=== PATIENT | female | born 1950 | race Caucasian/White ===

== ENCOUNTER → 2019-09-19 | Outpatient (CLI) | payer MEDICARE ==
[~2019-09-19] MED LIST: HORMONE REPLACEMENT PO; LORTAB 5/500 501 TAB PO; OCUFLOX OPHTH DR5 ML OD
== END ==
LOC: MC.RAD 12:31
DX: N63.11 Unspecified lump in the right breast, upper outer quadrant (principal); Z85.3 Personal history of malignant neoplasm of breast; Z92.3 Personal history of irradiation; Z98.890 Other specified postprocedural states

== ENCOUNTER → 2019-12-21 | Outpatient (CLI) | payer MEDICARE | LOC: MC.RAD 09:47 | DX: C50.211 Malignant neoplasm of upper-inner quadrant of right female breast (principal); Z98.890 Other specified postprocedural states | CPT/HCPCS: G0279 ==

== ENCOUNTER → 2020-12-24 | Outpatient (CLI) | payer MEDICARE | LOC: MC.RAD 12:57 | DX: Z12.31 Encounter for screening mammogram for malignant neoplasm of breast (principal); Z80.3 Family history of malignant neoplasm of breast; Z98.890 Other specified postprocedural states; Z98.82 Breast implant status ==

== ENCOUNTER → 2021-03-03 | Outpatient (CLI) | payer MEDICARE | LOC: MC.RAD 12:50 | DX: C50.211 Malignant neoplasm of upper-inner quadrant of right female breast (principal) ==

== ENCOUNTER → 2022-01-12 | Outpatient (CLI) | payer MEDICARE | LOC: MC.RAD 14:19 | DX: Z12.31 Encounter for screening mammogram for malignant neoplasm of breast (principal) ==

== ENCOUNTER → 2022-03-17 | Outpatient (CLI) | payer MEDICARE | LOC: COL.VAS 13:50 | DX: I08.0 Rheumatic disorders of both mitral and aortic valves (principal); I87.2 Venous insufficiency (chronic) (peripheral); R60.0 Localized edema ==

== ENCOUNTER → 2022-07-19 | Outpatient (CLI) | payer MEDICARE | LOC: MHCPAIN 09:40 | DX: M54.16 Radiculopathy, lumbar region (principal); G83.10 Monoplegia of lower limb affecting unspecified side; M79.605 Pain in left leg | CPT/HCPCS: G0463 ==

== ENCOUNTER → 2022-07-28 | Outpatient (CLI) | payer MEDICARE | LOC: MHCPAIN 10:40 | DX: M54.16 Radiculopathy, lumbar region (principal); M48.061 Spinal stenosis, lumbar region without neurogenic claudication; M54.2 Cervicalgia; G83.10 Monoplegia of lower limb affecting unspecified side | CPT/HCPCS: G0463 ==

== ENCOUNTER → 2022-08-24 | Outpatient (CLI) | payer MEDICARE | LOC: MHCPAIN 13:04 | DX: M54.16 Radiculopathy, lumbar region (principal); M48.061 Spinal stenosis, lumbar region without neurogenic claudication; M50.30 Other cervical disc degeneration, unspecified cervical region | CPT/HCPCS: G0463 ==

== ENCOUNTER → 2023-01-04 | Outpatient (CLI) | payer MEDICARE ==
[~2023-01-04] MED LIST changes: +ADVIL LIQUI-GE200 MG PO; +ALDACTONE 25MG25 M1 PO; +ALEVE PM PO; +ASPIRIN 81M81 MG/TA2 PO; +COMPLETE MULTI1 TAB PO; +EFFEXOR 3737.5 MG/TA PO; +LASIX 40MG TABL40 MG PO; +MASON NATURAL1200 MG PO; +NEURONTIN100 MG/CAP PO; +PHAZYME250 MG PO; +PRILOSEC 20MG20 MG PO; +THE MEDICINE S200 M2 PO; +TURMERIC500 MG PO; +TYLENOL 8 HR PO; +VITAMINC1000TA; +VITAMIND3 5000 PO; +[UNRECOGNIZED DRUG - OTHER] PO
== END ==
LOC: COL.RAD 10:38
DX: M48.061 Spinal stenosis, lumbar region without neurogenic claudication (principal); M51.36 Other intervertebral disc degeneration, lumbar region; M47.817 Spondylosis without myelopathy or radiculopathy, lumbosacral region

== ENCOUNTER → 2024-05-09 | Outpatient (CLI) | payer MEDICARE ==
[~2024-05-09] MED LIST changes: +Gadoterate 15 ML VIAL IV ONE
== END ==
LOC: COL.RAD 10:30
DX: C50.211 Malignant neoplasm of upper-inner quadrant of right female breast (principal)
CPT/HCPCS: A9575

== ENCOUNTER → 2024-07-25 | Outpatient (CLI) | payer MEDICARE ==
[~2024-07-25] MED LIST changes: -Gadoterate 15 ML VIAL IV ONE
== END ==
LOC: MC.RAD 08:51
DX: Z12.31 Encounter for screening mammogram for malignant neoplasm of breast (principal); C50.211 Malignant neoplasm of upper-inner quadrant of right female breast